=== PATIENT | female | born 2000 | race African-American/Black ===

== ENCOUNTER 2022-01-22 08:03 | Emergency (ER) | payer OTHER, SELFPAY ==
[2022-01-22 08:16] VITALS: BP 126/59; PULSE 80; RESP 18; TEMP 36.4; O2SAT 98; BMI 28.3
--- NOTE | 2022-01-22 08:50 | ED_ITS ---
HPI - Headache General Chief Complaint: Headache Stated Complaint: Migraine, Feels like needle pokes in arms/hands Time Seen by Provider: 01/22/22 08:50 Mode of arrival: Family Vehicle History of Present Illness HPI Narrative: Patient is a 21-year-old history of migraines presenting today with migraine headache. She says it started around 1:00 a.m. it woke her from her sleep. She typically takes Tylenol and ibuprofen but only had Tylenol last night. It has not helped. She feels nauseous he is vomiting. No fevers or chills. She felt fine yesterday. She occasionally has numbness in her hands have been ongoing for a while not new since her migraine. But the migraine did seem to make it worse. She was able to drive herself here any difficulty. No neck. Related Data Allergies Allergy/AdvReac Type Severity Reaction Status Date / Time No Known Drug Allergies Allergy Verified 01/22/22 08:16 Review of Systems Review of Systems Narrative: GENERAL: Denies chills, fatigue, malaise, fever, sweats, travel HEENT: Denies sinus pain, ear pain, sore throat, difficulty swallowing, neck pain RESPIRATORY: Denies dyspnea, cough, wheezing, hemoptysis, sputum. CARDIOVASCULAR: Denies chest pain, palpitations, orthopnea, edema GASTROINTESTINAL: Denies nausea, vomiting, abdominal pain, diarrhea, c onstipation, melena. : Denies dysuria, frequency, incontinence, hematuria, urinary retention, flank pain. MUSCULOSKELETAL: Denies weakness, joint pain, or bony pain SKIN: No rash, no erythema, no pruritus NEUROLOGIC: See HPI PSYCHIATRIC: No concerning psychosocial issues. 12 point review of systems is negative except for those stated above and HPI Patient History Social History Smoking Status: Never smoker Smoking Status: Never smoker alcohol intake frequency: 0-2 drinks per day Substance Use Type: does not use Exam Initial Vital Signs Initial Vital Signs: Vital Signs Temperature 97.6 F 01/22/22 08:16 Pulse Rate 80 01/22/22 08:16 Respiratory Rate 18 01/22/22 08:16 Blood Pressure 126/59 L 01/22/22 08:16 Pulse Oximetry 98 01/22/22 08:16 GENERAL: Alert 21-year-old female appears to be in mild discomfort HEENT: Head atraumatic,EOMI, pupils reactive, face symmetric, moist mucous membranes , no meningeal signs CARDIOVASCULAR: Regular rate and rhythm without murmurs, rubs or gallops. RESPIRATORY: Breath sounds equal bilaterally, no wheezes rales or rhonchi. ABDOMEN: Soft, nontender. Normoactive bowel sounds all 4 quadrants. No guarding or rebound. EXTREMITIES: Normal range of motion, no clubbing or edema. Neurovascularly intact NEUROLOGICAL: Alert and oriented x4.Normal gait and speech. T[place]etter strength equal bilateral SKIN: Warm, dry, no laceration, no petechiae, no rashes or lesions. Course Orders Ordered: Discontinued Medications Sodium Chloride (Normal Saline 0.9%) 1,000 mls @ 1,000 mls/hr IV BOLUS ONE Stop: 01/22/22 09:51 Last Infusion: 01/22/22 10:30 Dose: 0 mls/hr Documented by: CASSANDRAOTEMonalisa Admin: 01/22/22 09:03 Dose: 1,000 mls/hr Documented by: MANUEL Ketorolac Tromethamine (Ketorolac 30 Mg/Ml Vial) 15 mg IV NOW ONE Stop: 01/22/22 08:53 Last Admin: 01/22/22 09:03 Dose: 15 mg Documented by: MANUEL Ondansetron HCl (Ondansetron 4 Mg/2 Ml Inj) 4 mg IV NOW ONE Stop: 01/22/22 08:53 Last Admin: 01/22/22 09:03 Dose: 4 mg Documented by: MANUEL Vital Signs Vital signs: Vital Signs - 8 hr 01/22/22 10:30 Pulse Rate 84 Blood Pressure 121/72 Pulse Oximetry 100 MDM - Headache MDM Narrative Medical decision making narrative: Patient has a history of migraines is present similar to other migraines. She does report some tingling in her hands is been ongoing a little bit worse with her migraine but now with Toradol and Zofran this has improved. I see no need for imaging at this time. She overall feeling significantly better even sleeping in the emergency department. Discharge Plan Departure Patient Disposition: Home Clinical Impression: Migraine Instructions: DI for Migraine Activity Restrictions/Additional Instructions: *You have been diagnosed with migraine *What to do: I recommend going home and resting. Make sure drinking fluid in eating. *Continue to take medications as directed Tylenol 1000 mg every 6 hours if needed for [id number] pain Ibuprofen 600 mg every 6 hours if needed for [id number] pain *Follow up with your primary care provider in 2-3 days or call [phone] *Return to ER if you should have increasing pain persistent vomiting, worsening tingling or any new, worsening or concerning symptoms
[2022-01-22] MEDS: SODIUM CHLORIDE 0.9% 1,000 ML 1000 ML IV (09:03)
[2022-01-22] MEDS: ONDANSETRON 4 MG/2 ML INJ IV (09:03)
[2022-01-22] MEDS: KETOROLAC 30 MG/ML VIAL 15 MG IV (09:03)
[2022-01-22 10:30] VITALS: BP 121/72; PULSE 84; O2SAT 100
== END 2022-01-22 10:30 | disposition home or self-care (01) ==
PROVIDERS: Emergency Provider Emergency Medicine
DX: G43.909 Migraine, unspecified, not intractable, without status migrainosus (principal)
CPT/HCPCS: 36415; 96361; 96374; 96375; 99284; J1885; J2405